=== PATIENT | female | born 1955 | race Caucasian/White ===

== ENCOUNTER 2024-12-27 18:16 | Emergency (ER) | payer MEDICAID, MEDICARE ==
[~2024-12-27] VITALS: Ht 160 cm; Wt 77.1 kg
[~2024-12-27 18:16] MED LIST: CHLO25TA69 PO; GABA-1181 PO; LURA40TA2 PO; OMEP10CA2 PO; SUCR1ORA3 PO
[2024-12-27 18:34] VITALS: TEMP 98.1
[2024-12-27 19:19] LABS: BASOPHILS % (AUTO) 1.1 % (0.0-2.0); EOSINOPHILS % (AUTO) 1.5 % (1.0-6.0); HEMATOCRIT 38.2 % (36-46); HEMOGLOBIN 12.7 g/dL (12.0-16.0); LYMPHOCYTES # (AUTO) 1.2 K/uL (1.0-4.8); LYMPHOCYTES % (AUTO) 23.3 % (22.0-44.0); MEAN CORPUSCULAR HEMOGLOBIN 31.8 pg (26.0-34.0); MEAN CORPUSCULAR HGB CONC 33.3 G/dL (31.0-37.0); MEAN CORPUSCULAR VOLUME 95 fL (80-100); MONOCYTES # (AUTO) 0.4 K/uL (0.1-1.0); MONOCYTES % (AUTO) 7.5 % (2.0-9.0); NEUTROPHILS # (AUTO) 3.3 K/uL (1.8-7.7); NEUTROPHILS % (AUTO) 66.6 % (40.0-70.0); PLATELET COUNT (AUTO) 231 K/uL (150-450); RED CELL DISTRIBUTION WIDTH 13.4 % (11.5-14.5)
[2024-12-27 19:21] LABS: COVID AG,FIA SOURCE NASAL SWAB
[2024-12-27 19:28] LABS: ANION GAP 5 mmol/L (8-16); CALCIUM, TOTAL 8.9 mg/dL (8.8-10.5); CARBON DIOXIDE 29 mmol/L (22-29); CHLORIDE 105 mmol/L (98-107); GLOMERULAR FILTR. RATE CALC 55 mL/min (>60); GLUCOSE,RANDOM 132 mg/dL (70-110); POTASSIUM 3.7 mmol/L (3.5-5.1); SODIUM SERUM 139 mmol/L (136-145); UREA NITROGEN, BLOOD 14 mg/dL (7-18)
[2024-12-27 19:36] LABS: ALCOHOL, BLOOD (SERUM) < 3 mg/dL (0-10)
[2024-12-27 19:43] LABS: SARS-COV2 (COVID) ANTIGEN,FIA Negative (Negative)
[2024-12-27] MEDS: LORazepam 2 MG TABLET PO ONE (20:48)
[2024-12-27 21:58] VITALS: BP 125/74; PULSE 60; RESP 16; O2SAT 97
== END 2024-12-27 21:45 ==
LOC: EMS 18:16
DX: R44.0 Auditory hallucinations (principal); J44.9 Chronic obstructive pulmonary disease, unspecified; I10 Essential (primary) hypertension; E78.00 Pure hypercholesterolemia, unspecified; Z88.0 Allergy status to penicillin; Z88.1 Allergy status to other antibiotic agents; Z88.2 Allergy status to sulfonamides; Z79.899 Other long term (current) drug therapy; Z20.822 Contact with and (suspected) exposure to COVID-19
CPT/HCPCS: 99283; 87426; 80048; 85025; 36415; G0480; 99285

== ENCOUNTER 2024-12-28 05:07 | Inpatient (IN) | payer MEDICARE, MEDICAID ==
[~2024-12-28] VITALS: Ht 160 cm; Wt 67.6 kg
[2024-12-28 08:33] VITALS: BP 95/58; PULSE 69; RESP 16; TEMP 97.9; O2SAT 97
[2024-12-28] MEDS: LORazepam 1 MG TABLET PO PRN (12:32)
[2024-12-28] MEDS ORDERED: CloNIDine HCL 0.1 MG TABLET PO PRN (15:30)
[2024-12-28] MEDS ORDERED: BACITRACIN 28 GM OINTMENT TP PRN (15:30)
[2024-12-28] MEDS ORDERED: ALBUTEROL SULFATE HFA 90 MCG/PUFF 8 GM INHALER IH PRN (15:30)
[2024-12-28] MEDS ORDERED: OMEPRAZOLE 20 MG CAPSULE PO PRN (15:30)
[2024-12-28] MEDS ORDERED: IBUPROFEN 600 MG TABLET PO PRN (15:30)
[2024-12-28] MEDS ORDERED: BENZOCAINE/MENTHOL [CEPACOL] LOZENGE PO PRN (15:30)
[2024-12-28] MEDS ORDERED: MAG HYDROX/ALUMINUM HYD/SIMETH ES 30 ML SUSPENSION UDCUP PO PRN (15:30)
[2024-12-28] MEDS ORDERED: DOCUSATE SODIUM 100 MG CAPSULE PO PRN (15:30)
[2024-12-28] MEDS ORDERED: ONDANSETRON 4 MG TABLET PO PRN (15:30)
[2024-12-28] MEDS ORDERED: MAGNESIUM HYDROXIDE SUSPENSION 30 ML UDCUP PO PRN (15:30)
[2024-12-28] MEDS ORDERED: PETROLATUM,WHITE 28 GM JELLY TP PRN (15:30)
[2024-12-28 20:21] VITALS: BP 148/96; PULSE 73; RESP 16; TEMP 98.1; O2SAT 95
[2024-12-28] MEDS ORDERED: PNEUMOCOCCAL VACCINE POLYVALENT 0.5 ML SYRINGE [PPSV23] IM. ONE (22:45)
[2024-12-29 08:08] LABS: HEMOGLOBIN A1C 5.1 % (3.8-5.6)
[2024-12-29 08:11] LABS: BASOPHILS % (AUTO) 0.6 % (0.0-2.0); EOSINOPHILS % (AUTO) 2.1 % (1.0-6.0); HEMATOCRIT 42.4 % (36-46); HEMOGLOBIN 14.1 g/dL (12.0-16.0); LYMPHOCYTES # (AUTO) 1.1 K/uL (1.0-4.8); LYMPHOCYTES % (AUTO) 23.5 % (22.0-44.0); MEAN CORPUSCULAR HEMOGLOBIN 31.6 pg (26.0-34.0); MEAN CORPUSCULAR HGB CONC 33.3 G/dL (31.0-37.0); MEAN CORPUSCULAR VOLUME 95 fL (80-100); MONOCYTES # (AUTO) 0.3 K/uL (0.1-1.0); MONOCYTES % (AUTO) 7.5 % (2.0-9.0); NEUTROPHILS % (AUTO) 66.3 % (40.0-70.0); PLATELET COUNT (AUTO) 228 K/uL (150-450); RED BLOOD CELL COUNT(AUTO) 4.46 MIL/uL (4.00-5.20); WHITE BLOOD COUNT (AUTO) 4.5 K/uL (4.5-11.0)
[2024-12-29 08:23] LABS: ALANINE AMINOTRANSFERASE 22 U/L (12-78); ALBUMIN 3.5 g/dL (3.4-5.0); ALKALINE PHOSPHATASE 80 U/L (46-116); ANION GAP 7 mmol/L (8-16); ASPARTATE AMINOTRANSFERASE 13 U/L (15-37); BILIRUBIN,TOTAL 0.4 mg/dL (0.1-1.0); CALCIUM, TOTAL 9.3 mg/dL (8.8-10.5); CARBON DIOXIDE 28 mmol/L (22-29); CHLORIDE 106 mmol/L (98-107); CHOL/HDL RATIO 2.5 (3.9-5.7); CHOLESTEROL 239 mg/dL (131-200); CREATININE 0.75 mg/dL (0.60-1.30); FREE T4 (FREE THYROXINE) 0.84 ng/dL (0.76-1.46); GLOMERULAR FILTR. RATE CALC > 60 mL/min (>60); GLUCOSE,RANDOM 97 mg/dL (70-110); HDL CHOLESTEROL 94 mg/dL (40-60); LDL CHOL (CALC.) 111 mg/dL (0-130); SODIUM SERUM 141 mmol/L (136-145); THYROID STIMULATING HORMONE 0.22 uIU/mL (0.36-3.74); TRIGLYCERIDES 172 mg/dL (15-150); UREA NITROGEN, BLOOD 9 mg/dL (7-18)
[2024-12-29 08:34] VITALS: RESP 16
[2024-12-29] MEDS: OLANZapine 5 MG RAPDIS TABLET PO PRN (12:39)
[2024-12-29] MEDS: LOPERAMIDE HCL 2 MG CAPSULE PO PRN (14:31)
[2024-12-29] MEDS: RisperiDONE 3 MG TABLET PO SCH (16:43)
[2024-12-29] MEDS: GABAPENTIN 300 MG CAPSULE PO SCH (20:27)
[2024-12-29] MEDS: ZOLPIDEM TARTRATE 10 MG TABLET PO PRN (20:27)
[2024-12-29 21:13] VITALS: BP 138/90; PULSE 84; RESP 16; TEMP 97.8
[2024-12-30 04:37] VITALS: BP 128/84; RESP 16
[2024-12-30] MEDS: ACETAMINOPHEN 325 MG TABLET PO PRN (04:37)
[2024-12-30 06:21] VITALS: RESP 16
[2024-12-30] MEDS: LISINOPRIL 10 MG TABLET PO SCH (08:09)
[2024-12-30 08:22] VITALS: BP 140/68; PULSE 100; RESP 18; TEMP 98; O2SAT 98
[2024-12-30 21:38] VITALS: BP 113/57; PULSE 66; RESP 16; TEMP 98.1; O2SAT 95
[2024-12-31 08:54] LABS: APPEARANCE,URINE CLEAR (CLEAR); BILIRUBIN,URINE NEGATIVE (NEGATIVE); COLOR,URINE LIGHT YELLOW (YELLOW); GLUCOSE, URINE (UA) NEGATIVE (NEGATIVE); KETONES,URINE NEGATIVE (NEGATIVE); LEUKOCYTE ESTERASE ,URINE SMALL (NEGATIVE); NITRATE,URINE NEGATIVE (NEGATIVE); OCCULT BLOOD,URINE NEGATIVE (NEGATIVE); PROTEIN,URINE NEGATIVE (NEGATIVE); SPECIFIC GRAVITIY, URINE 1.007 (1.003-1.030); UROBILINOGEN,URINE <=1.0 mg/dL (<=1.0)
[2024-12-31 08:58] LABS: ALCOHOL, URINE DRUG SCREEN NEGATIVE (NEGATIVE); AMPHET/METH SCREEN,URINE NEGATIVE (NEGATIVE); BARBITURATE SCREEN, URINE NEGATIVE (NEGATIVE); BENZODIAZEPINES SCREEN,URINE NEGATIVE (NEGATIVE); CANNABINOID SCREEN,URINE NEGATIVE (NEGATIVE); COCAINE SCREEN,URINE NEGATIVE (NEGATIVE); METHADONE SCREEN, URINE NEGATIVE (NEGATIVE); OPIATE SCREEN,URINE NEGATIVE (NEGATIVE); PHENCYCLIDINE SCREEN,URINE NEGATIVE (NEGATIVE)
[2024-12-31 09:10] LABS: BACTERIA,URINE None Seen /HPF (None Seen); SQUAMOUS EPITHELIAL CELL,UR Rare /LPF (None Seen); WBC,URINE None Seen /HPF (0-5)
[2024-12-31 09:14] VITALS: RESP 17; O2SAT 96
[2024-12-31 09:44] VITALS: BP 112/72; PULSE 89; RESP 17; TEMP 97.1; O2SAT 96
[2024-12-31 10:14] VITALS: RESP 16
[2024-12-31] MEDS ORDERED: RISP3TAB77 PO (14:12)
[2024-12-31] MEDS ORDERED: LISI-661 PO (14:12)
== END 2024-12-31 17:03 | disposition home or self-care (01) | DRG 885 ==
LOC: B3A 06:28
PROVIDERS: ADMIT Psychiatry & Neurology Psychiatry; ATTEND Psychiatry & Neurology Psychiatry
DX: F20.9 Schizophrenia, unspecified (principal); F41.9 Anxiety disorder, unspecified; G43.909 Migraine, unspecified, not intractable, without status migrainosus; G47.00 Insomnia, unspecified; I10 Essential (primary) hypertension; K21.9 Gastro-esophageal reflux disease without esophagitis; K59.00 Constipation, unspecified; F10.90 Alcohol use, unspecified, uncomplicated; Y90.9 Presence of alcohol in blood, level not specified; Z79.899 Other long term (current) drug therapy
CPT/HCPCS: 80053; 80061; 80307; 81001; 83036; 84439; 84443; 85025